=== PATIENT | male | born 1985 | race Caucasian/White ===

== ENCOUNTER 2016-07-10 10:23 | Emergency (ER) | payer OTHER ==
[~2016-07-10] VITALS: Ht 175.3 cm; Wt 77.1 kg
[~2016-07-10 10:23] MED LIST: CEPH-569 PO; SULF1TAB47 PO
[2016-07-10 11:42] VITALS: BP 126/82
== END 2016-07-10 11:42 | disposition home or self-care (01) ==
LOC: ER 10:24
DX: B35.8 Other dermatophytoses (principal); F17.200 Nicotine dependence, unspecified, uncomplicated
CPT/HCPCS: 99283; A4606; Z7610